=== PATIENT | female | born 1940 | race Caucasian/White ===

== ENCOUNTER 2019-03-08 09:49 | Emergency (ER) | payer MEDICARE, OTHER ==
[~2019-03-08] VITALS: Ht 172 cm; Wt 79.0 kg
[~2019-03-08 09:49] MED LIST: DESV50TA PO; ESTR1TAB24 PO; ESTRACE; HCTZ; HCTZ12.5T PO; MECL-124 PO; METO25TA; PRISTIQ; TRAZ50TA67 PO; TRAZADONE
--- NOTE | 2019-03-08 10:38 | ED Head Injury ---
General Chief Complaint: Trauma-Non Activation Stated Complaint: FALL Nursing Triage Note: PT OUT OF TRUCK W ASSISTANCE, SON STATES FELL AT HOME, DENIES LOC CO OF SL PAIN TOP OF HEAD, HAS HX OF DEMENTIA Source: patient Exam Limitations: no limitations History of Present Illness Date Seen by Provider: Mar 08, 2019 Time Seen by Provider: 10:34 Initial Comments To ER by private vehicle with reports of fall at home. She went out to Dr. her neighbors across the street when she "got tripped up" struck her head on the ground during the fall, no loss of consciousness no anticoagulant use no nausea no dizziness no vomiting but does complain of mild headache. No neck pain. No extremity pain. No chest abdomen pelvis or hip pain. Location Injury Occurred: HOME Occurred: just prior to arrival Severity: moderate Location: frontal (midline) Method of Injury: fell Loss of Consciousness: no loss of consciousness Associated Systoms: Headaches Allergies and Home Medications Allergies Coded Allergies: No Known Drug Allergies (Unverified , 02/02/11) Home Medications Desvenlafaxine Succinate 50 Mg Tab.sr.24h, 50 MG PO DAILY, (Reported) Estradiol 1 Mg Tablet, 1 MG PO DAILY, (Reported) Meclizine Hcl 25 Mg Tab, 1-2 TAB PO Q 4-6 HOURS PRN for DIZZINESS Prescribed by: RENETTA NAIR on 11/29/13 1154 Trazodone Hcl 50 Mg Tablet, 25 MG PO HS, (Reported) Patient Home Medication List Home Medication List Reviewed: Yes Review of Systems Review of Systems Constitutional: see HPI Eyes: No Symptoms Reported Ears, Nose, Mouth, Throat: no symptoms reported Respiratory: no symptoms reported Cardiovascular: no symptoms reported Genitourinary: no symptoms reported Musculoskeletal: no symptoms reported Skin: no symptoms reported Psychiatric/Neurological: Headache Past Lxbpxva-Vbhjlw-Ejgaqv Hx Patient Social History Alcohol Use: Denies Use Recreational Drug Use: No Smoking Status: Never a Smoker Recent Foreign Travel: No Contact w/Someone Who Travel: No Recent Infectious Disease Expo: No Recent Hopitalizations: No Immunizations Up To Date Date of Pneumonia Vaccine: Mar 12, 2012 Past Medical History Surgeries: Yes (hysterectomy, gall bladder surgery) Respiratory: No Cardiac: Yes Neurological: No Reproductive Disorders: Yes (hysterectomy because of abnormal bleeding) DRAG DOWN History: Hysterectomy Gastrointestinal: No Musculoskeletal: No Endocrine: No Psychosocial: Yes Depression Blood Disorders: No Physical Exam Vital Signs Vital Signs - First Documented 9/27/19 09:55 Temp 36.9 Pulse 72 Resp 18 B/P (MAP) 131/73 (92) Capillary Refill : Less Than 3 Seconds Height, Weight, BMI Height: 5'5" Weight: 160lbs. oz. 72.213129lm; 26.00 BMI Method: General Appearance: WD/WN, no apparent distress HEENT: PERRL/EOMI, normal ENT inspection, TMs normal, other (no visualized scalp laceration no palpable hematoma) Neck: non-tender, full range of motion Respiratory: chest non-tender, lungs clear, normal breath sounds, no respiratory distress, no accessory muscle use Gastrointestinal: normal bowel sounds, non tender, soft Extremities: normal range of motion, non-tender Psychiatric: alert; No lethargic [place] Nerves: normal hearing, normal speech Skin: normal color, warm/dry Laura Coma Score Best Eye Response: (4) Open Spontaneously Best Verbal Response: (5) Oriented Best Motor Response: (6) Obeys Commands [place] Total: 15 Progress/Results/Core Measures Results/Orders My Orders Orders - DESTINY BENNETT APRN Ct Head/Cervical Spine Wo (03/08/19 10:33) Vital Signs/I&O 03/08/19 09:55 Temp 36.9 Pulse 72 Resp 18 B/P (MAP) 131/73 (92) Blood Pressure Mean: 92 Departure Impression Primary Impression: Minor head injury Qualified Codes: S09.90XA - Unspecified injury of head, initial encounter Disposition: 01 HOME, SELF-CARE Condition: Stable Departure-Patient Inst. Decision time for Depature: 10:37 Referrals: GEOVANI KING MD (PCP/Family) Primary Care Physician Patient Instructions: Minor Head Injury Add. Discharge Instructions: 1. Return to ER for any severe headache, vomiting or other concerns. All discharge instructions reviewed with patient and/or family. Voiced understanding. DESTINY BENNETT APRN Mar 08, 2019 10:37
--- NOTE | 2019-03-08 11:46 | Diagnostic Imaging Report ---
CLINICAL INDICATION: Patient fell this morning and hit front of head. No complaints. EXAM: Head CT without IV contrast. Axial CT scan of the cervical spine with sagittal and coronal reformations. Auto Exposure Controls were utilized during the CT exam to meet ALARA standards for radiation dose reduction. COMPARISON: Head CT without contrast dated 11/29/2013. FINDINGS: Head CT: There is no evidence of acute cerebral infarct, intracranial hemorrhage, or gross mass effect. There is diffuse brain parenchymal volume loss. There are subtle low-attenuation white matter changes, likely related to chronic small vessel ischemic disease. There is normal tenorio-white matter distinction. There is no significant midline shift or herniation. There is no evidence of hydrocephalus. The basal cisterns are unremarkable. The skull, extracranial soft tissue, and orbits are unremarkable. There is minimal ethmoid sinus mucosal thickening. Temporal bones show no significant abnormality. Cervical spine: There is no acute cervical spine fracture. There is grade 1 anterolisthesis of C3 on C4 likely degenerative with no pars defect seen. There are vertebral body spurs and facet arthropathy. There is no significant bony central canal narrowing. There is severe left C4-C5 bony neural foramen narrowing. This is a 5 mm x 12 mm low-density nodule in the right thyroid gland. Calcified nodules in the posterior right upper lobe seen. IMPRESSION: 1: There is no evidence of acute intracranial process. There is no intracranial hemorrhage or skull fracture. 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 Dictated by: Dictated on workstation # [id number]
[2019-03-08 11:55] VITALS: BP 131/73
== END 2019-03-08 11:55 | disposition home or self-care (01) ==
LOC: EDUNIT# 09:49 → ER 09:50
DX: S09.90XA Unspecified injury of head, initial encounter (principal); F03.90 Unspecified dementia, unspecified severity, without behavioral disturbance, psychotic disturbance, mood disturbance, and anxiety; F32.9 Major depressive disorder, single episode, unspecified; Z79.52 Long term (current) use of systemic steroids; Z90.710 Acquired absence of both cervix and uterus; W01.198A Fall on same level from slipping, tripping and stumbling with subsequent striking against other object, initial encounter; Y92.009 Unspecified place in unspecified non-institutional (private) residence as the place of occurrence of the external cause
CPT/HCPCS: 70450; 72125